=== PATIENT | male | born 1985 | race African-American/Black ===

== ENCOUNTER 2020-12-22 13:50 | Observation (INO) | payer OTHER ==
[2020-12-22 14:05] VITALS: TEMP 99.7
[2020-12-22 15:20] LABS: Amphetamine Screen,Urine Not Detected (NotDetected); Barbiturate Screen,Urine Not Detected (NotDetected); Basophils # (A) 0.1 k/uL (0-0.2); Basophils % (A) 1 %; Benzodiazepines Screen,Urine Not Detected (NotDetected); Cocaine Screen,Urine Not Detected (NotDetected); Eosinophils # (A) 0.2 k/uL (0-0.7); Eosinophils % (A) 2 %; HCT 46.4 % (39.0-53.0); Lymphocytes # (A) 3.1 k/uL (1.0-4.8); Lymphocytes % (A) 31 %; MCH 31.1 pg (25.0-35.0); MCHC 34.6 g/dL (31.0-37.0); MCV 89.9 fL (80.0-100.0); Methadone Screen, Urine Not Detected (NotDetected); Monocytes # (A) 0.6 k/uL (0-1.0); Monocytes % (A) 6 %; Neutrophils % (A) 59 %; Opiate Screen,Urine Not Detected (NotDetected); Oxycodone Screen, Urine Not Detected (NotDetected); Phencyclidine Screen,Urine Not Detected (NotDetected); Platelet Count 199 k/uL (150-450); RBC 5.16 m/uL (4.30-5.90); RDW 13.6 % (11.5-15.5); Tricyclic Antidepressant,Urine Not Detected (NotDetected); Urn Cannabinoid Scrn Not Detected (NotDetected); WBC 10.1 k/uL (3.8-10.6)
[2020-12-22 15:28] LABS: Lactic Acid, Venous 1.7 mmol/L (0.7-2.0)
[2020-12-22 16:23] LABS: ALT 24 U/L (4-49); AST 45 U/L (17-59); African American GFR (CKD) 79 (>60 ml/min/1.73 sqM); Albumin 4.7 g/dL (3.5-5.0); Alcohol <10 mg/dL; Alkaline Phosphatase 84 U/L (38-126); Amylase 67 U/L (30-110); Anion Gap 12 mmol/L; Blood Urea Nitrogen 11 mg/dL (9-20); Calcium 10.5 mg/dL (8.4-10.2); Carbon Dioxide 25 mmol/L (22-30); Chloride 102 mmol/L (98-107); Glucose 109 mg/dL (74-99); Lipase 72 U/L (23-300); Magnesium 1.7 mg/dL (1.6-2.3); Non-African American GFR(CKD) 69 (>60 ml/min/1.73 sqM); Potassium 4.2 mmol/L (3.5-5.1); Sodium 139 mmol/L (137-145); Total Bilirubin 0.9 mg/dL (0.2-1.3)
[2020-12-22 16:27] LABS: Creatine Kinase 1079 U/L (55-170)
[2020-12-22] MEDS ORDERED: LORazepam 2 MG/ML INJ IV STA (17:35)
--- NOTE | 2020-12-22 17:41 | ED ---
General Adult HPI - General Chief complaint: Psychiatric Symptoms Stated complaint: Intoxication/Drug Use Time Seen by Provider: 12/22/20 14:00 Source: patient, EMS, RN notes reviewed Mode of arrival: EMS Limitations: no limitations - History of Present Illness Initial comments: 35-year-old male with unknown medical history other than that of crack cocaine abuse who is brought in by EMS from [facility] because of the very anxious acting strangely. The patient had stated that he had done 85 capsules of Kratom but also admitted to using crack cocaine and also states he took [id number] sleeping medication because he could not sleep. He is demonstrating somewhat of a flight of ideas he also later complained of some pa in - Related Data Home Medications Medication Instructions Recorded Confirmed ARIPiprazole [Abilify] 15 mg PO HS 12/22/20 12/22/20 Divalproex Sodium [Depakote] 500 mg PO BID 12/22/20 12/22/20 Haloperidol Decanoate [Haldol D] 50 mg IM QMONTHLY 12/22/20 12/22/20 PARoxetine [Paxil] 20 mg PO BID 12/22/20 12/22/20 Sertraline [Zoloft] 100 mg PO DAILY 12/22/20 12/22/20 hydrOXYzine pamoate [Vistaril] 25 mg PO TID 12/22/20 12/22/20 traZODone HCL [Desyrel] 100 mg PO HS 12/22/20 12/22/20 Allergies Allergy/AdvReac Type Severity Reaction Status Date / Time No Known Allergies Allergy Verified 12/22/20 15:33 Review of Systems ROS Statement: Those systems with pertinent positive or pertinent negative responses have been documented in the HPI. ROS Other: All systems not noted in ROS Statement are negative. Limitations: ROS unobtainable due to patients medical condition Past Medical History Past Medical History: Unable to Obtain History of Any Multi-Drug Resistant Organisms: Unobtainable Past Surgical History: Unable to Obtain Past Psychological History: Unable to Obtain Smoking Status: Unknown if ever smoked Past Alcohol Use History: Unable to Obtain Past Drug Use History: Cocaine General Exam - General Exam Comments Initial Comments: This is a well-developed well-nourished awake alert oriented times female who does demonstrate some flight of ideas but otherwise does answer questions appropriately Limitations: no limitations General appearance: alert, anxious Head exam: Present: atraumatic, normocephalic, normal inspection Eye exam: Present: normal appearance, PERRL, EOMI. Absent: scleral icterus, conjunctival injection, periorbital swelling ENT exam: Present: mucous membranes dry Neck exam: Present: normal inspection, full ROM, other. Absent: tenderness, meningismus, lymphadenopathy Respiratory exam: Present: normal lung sounds bilaterally. Absent: respiratory distress, wheezes, rales, rhonchi, stridor Cardiovascular Exam: Present: normal rhythm, tachycardia (No stridor JVD or bruits), normal heart sounds. Absent: systolic murmur, diastolic murmur, rubs, gallop, clicks GI/Abdominal exam: Present: soft, normal bowel sounds. Absent: distended, tenderness, guarding, rebound, rigid Extremities exam: Present: full ROM, normal capillary refill, other (Foot demonstrates evidence of blister formation on the right metatarsal phalangeal joint plantar surface). Absent: tenderness, pedal edema, joint swelling, calf tenderness Back exam: Present: normal inspection Neurological exam: Present: alert, oriented X3, CN II-XII intact Psychiatric exam: Present: anxious, other (X-ray some flight of ideas and irrational thought patterns) Skin exam: Present: warm, dry, intact, normal color. Absent: rash Course Vital Signs 12/22/20 13:58 Temperature 99.7 F H Pulse Rate 115 H Respiratory 22 Rate Blood Pressure 114/92 O2 Sat by Pulse 100 Oximetry Medical Decision Making - Medical Decision Making The patient's drug screen and alcohol levels are negative. Patient does demons trate evidence of rhabdomyolysis as well as toxicity from the medications he states he took he will be admitted the case discussed the [facility] group - Lab Data Result diagrams: 12/22/20 14:52 12/22/20 15:58 Lab Results 12/22/20 12/22/20 12/22/20 Range/Units 14:52 14:52 14:52 WBC 10.1 (3.8-10.6) k/uL RBC 5.16 (4.30-5.90) m/uL Hgb 16.0 (13.0-17.5) gm/dL Hct 46.4 (39.0-53.0) % MCV 89.9 (80.0-100.0) fL MCH 31.1 (25.0-35.0) pg MCHC 34.6 (31.0-37.0) g/dL RDW 13.6 (11.5-15.5) % Plt Count 199 (150-450) k/uL MPV 8.0 Neutrophils % 59 % Lymphocytes % 31 % Monocytes % 6 % Eosinophils % 2 % Basophils % 1 % Neutrophils # 6.0 (1.3-7.7) k/uL Lymphocytes # 3.1 (1.0-4.8) k/uL Monocytes # 0.6 (0-1.0) k/uL Eosinophils # 0.2 (0-0.7) k/uL Basophils # 0.1 (0-0.2) k/uL Sodium (137-145) mmol/L Potassium (3.5-5.1) mmol/L Chloride (98-107) mmol/L Carbon Dioxide (22-30) mmol/L Anion Gap mmol/L BUN (9-20) mg/dL Creatinine (0.66-1.25) mg/dL Est GFR (CKD-EPI)AfAm (>60 ml/min/1.73 sqM) Est GFR (CKD-EPI)NonAf (>60 ml/min/1.73 sqM) Glucose (74-99) mg/dL Plasma Lactic Acid Robin 1.7 (0.7-2.0) mmol/L Calcium (8.4-10.2) mg/dL Magnesium (1.6-2.3) mg/dL Total Bilirubin (0.2-1.3) mg/dL AST (17-59) U/L ALT (4-49) U/L Alkaline Phosphatase (38-126) U/L Ammonia 18 (<30) umol/L Creatine Kinase (55-170) U/L Total Protein (6.3-8.2) g/dL Albumin (3.5-5.0) g/dL Amylase (30-110) U/L Lipase (23-300) U/L Urine Opiates Screen Not Detected (NotDetected) Ur Oxycodone Screen Not Detected (NotDetected) Urine Methadone Screen Not Detected (NotDetected) Ur Propoxyphene Screen Not Detected (NotDetected) Ur Barbiturates Screen Not Detected (NotDetected) U Tricyclic Antidepress Not Detected (NotDetected) Ur Phencyclidine Scrn Not Detected (NotDetected) Ur Amphetamines Screen Not Detected (NotDetected) U Methamphetamines Scrn Not Detected (NotDetected) U Benzodiazepines Scrn Not Detected (NotDetected) Urine Cocaine Screen Not Detected (NotDetected) U Marijuana (THC) Screen Not Detected (NotDetected) Serum Alcohol mg/dL 12/22/20 Range/Units 15:58 WBC (3.8-10.6) k/uL RBC (4.30-5.90) m/uL Hgb (13.0-17.5) gm/dL Hct (39.0-53.0) % MCV (80.0-100.0) fL MCH (25.0-35.0) pg MCHC (31.0-37.0) g/dL RDW (11.5-15.5) % Plt Count (150-450) k/uL MPV Neutrophils % % Lymphocytes % % Monocytes % % Eosinophils % % Basophils % % Neutrophils # (1.3-7.7) k/uL Lymphocytes # (1.0-4.8) k/uL Monocytes # (0-1.0) k/uL Eosinophils # (0-0.7) k/uL Basophils # (0-0.2) k/uL Sodium 139 (137-145) mmol/L Potassium 4.2 (3.5-5.1) mmol/L Chloride 102 (98-107) mmol/L Carbon Dioxide 25 (22-30) mmol/L Anion Gap 12 mmol/L BUN 11 (9-20) mg/dL Creatinine 1.33 H (0.66-1.25) mg/dL Est GFR (CKD-EPI)AfAm 79 (>60 ml/min/1.73 sqM) Est GFR (CKD-EPI)NonAf 69 (>60 ml/min/1.73 sqM) Glucose 109 H (74-99) mg/dL Plasma Lactic Acid Robin (0.7-2.0) mmol/L Calcium 10.5 H (8.4-10.2) mg/dL Magnesium 1.7 (1.6-2.3) mg/dL Total Bilirubin 0.9 (0.2-1.3) mg/dL AST 45 (17-59) U/L ALT 24 (4-49) U/L Alkaline Phosphatase 84 (38-126) U/L Ammonia (<30) umol/L Creatine Kinase 1079 H* (55-170) U/L Total Protein 8.0 (6.3-8.2) g/dL Albumin 4.7 (3.5-5.0) g/dL Amylase 67 (30-110) U/L Lipase 72 (23-300) U/L Urine Opiates Screen (NotDetected) Ur Oxycodone Screen (NotDetected) Urine Methadone Screen (NotDetected) Ur Propoxyphene Screen (NotDetected) Ur Barbiturates Screen (NotDetected) U Tricyclic Antidepress (NotDetected) Ur Phencyclidine Scrn (NotDetected) Ur Amphetamines Screen (NotDetected) U Methamphetamines Scrn (NotDetected) U Benzodiazepines Scrn (NotDetected) Urine Cocaine Screen (NotDetected) U Marijuana (THC) Screen (NotDetected) Serum Alcohol <10 mg/dL Disposition Clinical Impression: Rhabdomyolysis, Drug overdose, Tachycardia Disposition: ADMITTED IP TO THIS [facility] Condition: Fair Referrals: Nonstaff,Physician [Primary Care Provider] - 1-2 days
[2020-12-22] MEDS ORDERED: SODIUM CHLORIDE 0.9% 1,000 ML IV SCH ×2 (17:45→18:30)
[2020-12-22] MEDS ORDERED: NALOXONE 0.4 MG/ML 1 ML VIAL IV PRN (18:20)
[2020-12-22 18:49] VITALS: BP 116/86; PULSE 90; RESP 20
[2020-12-22] MEDS ORDERED: HALOPERIDOL LACTATE 5 MG/ML 1 ML VIAL IM STA (19:33)
[2020-12-22] MEDS ORDERED: diphenhydrAMINE 50 MG/ML 1 ML VIAL IM STA (19:34)
[2020-12-22] MEDS ORDERED: LORazepam 2 MG/ML INJ IM STA (19:38)
--- NOTE | 2020-12-22 19:44 | ED ---
Medical Decision Making - Medical Decision Making Addendum the patient's demonstrate a flight of ideas is not demonstrating decision making capacity. - Lab Data Result diagrams: 12/22/20 14:52 12/22/20 15:58 Lab Results 12/22/20 12/22/20 12/22/20 Range/Units 14:52 14:52 14:52 WBC 10.1 (3.8-10.6) k/uL RBC 5.16 (4.30-5.90) m/uL Hgb 16.0 (13.0-17.5) gm/dL Hct 46.4 (39.0-53.0) % MCV 89.9 (80.0-100.0) fL MCH 31.1 (25.0-35.0) pg MCHC 34.6 (31.0-37.0) g/dL RDW 13.6 (11.5-15.5) % Plt Count 199 (150-450) k/uL MPV 8.0 Neutrophils % 59 % Lymphocytes % 31 % Monocytes % 6 % Eosinophils % 2 % Basophils % 1 % Neutrophils # 6.0 (1.3-7.7) k/uL Lymphocytes # 3.1 (1.0-4.8) k/uL Monocytes # 0.6 (0-1.0) k/uL Eosinophils # 0.2 (0-0.7) k/uL Basophils # 0.1 (0-0.2) k/uL Sodium (137-145) mmol/L Potassium (3.5-5.1) mmol/L Chloride (98-107) mmol/L Carbon Dioxide (22-30) mmol/L Anion Gap mmol/L BUN (9-20) mg/dL Creatinine (0.66-1.25) mg/dL Est GFR (CKD-EPI)AfAm (>60 ml/min/1.73 sqM) Est GFR (CKD-EPI)NonAf (>60 ml/min/1.73 sqM) Glucose (74-99) mg/dL Plasma Lactic Acid Robin 1.7 (0.7-2.0) mmol/L Calcium (8.4-10.2) mg/dL Magnesium (1.6-2.3) mg/dL Total Bilirubin (0.2-1.3) mg/dL AST (17-59) U/L ALT (4-49) U/L Alkaline Phosphatase (38-126) U/L Ammonia 18 (<30) umol/L Creatine Kinase (55-170) U/L Total Protein (6.3-8.2) g/dL Albumin (3.5-5.0) g/dL Amylase (30-110) U/L Lipase (23-300) U/L Urine Opiates Screen Not Detected (NotDetected) Ur Oxycodone Screen Not Detected (NotDetected) Urine Methadone Screen Not Detected (NotDetected) Ur Propoxyphene Screen Not Detected (NotDetected) Ur Barbiturates Screen Not Detected (NotDetected) U Tricyclic Antidepress Not Detected (NotDetected) Ur Phencyclidine Scrn Not Detected (NotDetected) Ur Amphetamines Screen Not Detected (NotDetected) U Methamphetamines Scrn Not Detected (NotDetected) U Benzodiazepines Scrn Not Detected (NotDetected) Urine Cocaine Screen Not Detected (NotDetected) U Marijuana (THC) Screen Not Detected (NotDetected) Serum Alcohol mg/dL Coronavirus (PCR) (Not Detectd) 12/22/20 12/22/20 Range/Units 15:58 17:51 WBC (3.8-10.6) k/uL RBC (4.30-5.90) m/uL Hgb (13.0-17.5) gm/dL Hct (39.0-53.0) % MCV (80.0-100.0) fL MCH (25.0-35.0) pg MCHC (31.0-37.0) g/dL RDW (11.5-15.5) % Plt Count (150-450) k/uL MPV Neutrophils % % Lymphocytes % % Monocytes % % Eosinophils % % Basophils % % Neutrophils # (1.3-7.7) k/uL Lymphocytes # (1.0-4.8) k/uL Monocytes # (0-1.0) k/uL Eosinophils # (0-0.7) k/uL Basophils # (0-0.2) k/uL Sodium 139 (137-145) mmol/L Potassium 4.2 (3.5-5.1) mmol/L Chloride 102 (98-107) mmol/L Carbon Dioxide 25 (22-30) mmol/L Anion Gap 12 mmol/L BUN 11 (9-20) mg/dL Creatinine 1.33 H (0.66-1.25) mg/dL Est GFR (CKD-EPI)AfAm 79 (>60 ml/min/1.73 sqM) Est GFR (CKD-EPI)NonAf 69 (>60 ml/min/1.73 sqM) Glucose 109 H (74-99) mg/dL Plasma Lactic Acid Robin (0.7-2.0) mmol/L Calcium 10.5 H (8.4-10.2) mg/dL Magnesium 1.7 (1.6-2.3) mg/dL Total Bilirubin 0.9 (0.2-1.3) mg/dL AST 45 (17-59) U/L ALT 24 (4-49) U/L Alkaline Phosphatase 84 (38-126) U/L Ammonia (<30) umol/L Creatine Kinase 1079 H* (55-170) U/L Total Protein 8.0 (6.3-8.2) g/dL Albumin 4.7 (3.5-5.0) g/dL Amylase 67 (30-110) U/L Lipase 72 (23-300) U/L Urine Opiates Screen (NotDetected) Ur Oxycodone Screen (NotDetected) Urine Methadone Screen (NotDetected) Ur Propoxyphene Screen (NotDetected) Ur Barbiturates Screen (NotDetected) U Tricyclic Antidepress (NotDetected) Ur Phencyclidine Scrn (NotDetected) Ur Amphetamines Screen (NotDetected) U Methamphetamines Scrn (NotDetected) U Benzodiazepines Scrn (NotDetected) Urine Cocaine Screen (NotDetected) U Marijuana (THC) Screen (NotDetected) Serum Alcohol <10 mg/dL Coronavirus (PCR) Not Detected (Not Detectd) Disposition Clinical Impression: Rhabdomyolysis, Drug overdose, Tachycardia, Acute psychosis Disposition: ADMITTED IP TO THIS HOSP Condition: Fair
[2020-12-22] MEDS: SODIUM CHLORIDE 0.9% 1,000 ML IV SCH (20:02)
== END 2020-12-22 20:04 | disposition left against medical advice (07) ==
LOC: EC 13:50 → 6NMEDSUR 18:23
PROVIDERS: ADMIT Student in an Organized Health Care Education/Training Program; ATTEND Student in an Organized Health Care Education/Training Program
DX: T50.992A Poisoning by other drugs, medicaments and biological substances, intentional self-harm, initial encounter (principal); Z53.29 Procedure and treatment not carried out because of patient's decision for other reasons; M62.82 Rhabdomyolysis; R00.0 Tachycardia, unspecified; F23 Brief psychotic disorder; F14.129 Cocaine abuse with intoxication, unspecified; Z20.822 Contact with and (suspected) exposure to COVID-19; Z79.899 Other long term (current) drug therapy
CPT/HCPCS: 82075; 99285; 36415; 80164; 80053; 82140; 82150; 82550; 83605; 83690; 83735; 85025; 80306; 87635; G0378; G0480; J2060; 80320

== ENCOUNTER 2020-12-22 20:07 | Observation (INO) | payer OTHER ==
[2020-12-22] MEDS ORDERED: NALOXONE 0.4 MG/ML 1 ML VIAL IV PRN (21:40)
--- NOTE | 2020-12-22 21:46 | ED ---
Recheck HPI - General Chief Complaint: Recheck/Abnormal Lab/Rx Stated Complaint: Intoxication Time Seen by Provider: 12/22/20 21:01 Source: patient Mode of arrival: ambulatory Limitations: no limitations - History of Present Illness Initial Comments: Srikanth a 35-year-old male who presents to the ER today at less than one hour after walking out AMA. Patient was seen earlier in the day after ingesting multiple drugs, uncertain what exactly he ingested he had mentioned crack cocaine, Benadryl and Kratom... however patient's urine drug screen was negative for all drugs therefore is unlikely that he had crack cocaine. During his previous workup earlier in the day patient was noted be in rhabdomyolysis and also had some labile emotions, he is given medications for sedation and anxiolysis and admitted to the hospital for IV fluid resuscitation. Patient apparently decided to walk out of the emergency department and upon walking out of decided to come back in. - Related Data Home Medications Medication Instructions Recorded Confirmed ARIPiprazole [Abilify] 15 mg PO HS 12/22/20 12/22/20 Divalproex Sodium [Depakote] 500 mg PO BID 12/22/20 12/22/20 Haloperidol Decanoate [Haldol D] 50 mg IM QMONTHLY 12/22/20 12/22/20 PARoxetine [Paxil] 20 mg PO BID 12/22/20 12/22/20 Sertraline [Zoloft] 100 mg PO DAILY 12/22/20 12/22/20 hydrOXYzine pamoate [Vistaril] 25 mg PO TID 12/22/20 12/22/20 traZODone HCL [Desyrel] 100 mg PO HS 12/22/20 12/22/20 Allergies Allergy/AdvReac Type Severity Reaction Status Date / Time No Known Allergies Allergy Verified 12/22/20 20:43 Review of Systems ROS Statement: Those systems with pertinent positive or pertinent negative responses have been documented in the HPI. ROS Other: All systems not noted in ROS Statement are negative. Past Medical History Past Medical History: Unable to Obtain History of Any Multi-Drug Resistant Organisms: Unobtainable Past Surgical History: Unable to Obtain Past Psychological History: Unable to Obtain Smoking Status: Unknown if ever smoked Past Alcohol Use History: Unable to Obtain Past Drug Use History: Cocaine General Exam - General Exam Comments Initial Comments: Physical Exam GENERAL: Patient is well-developed and well-nourished. Patient is nontoxic and well-hydrated and is in no distress. HENT: Normocephalic, Atraumatic. EYES: PERRL, EOMI PULMONARY: Unlabored respirations. CARDIOVASCULAR: RRR Warm and well perfused extremities ABDOMEN: Non-distended SKIN: No rashes or bruising : Deferred NEUROLOGIC: Alert and oriented Normal speech Normal gait MUSCULOSKELETAL: Moving all extremities with no apparent injury PSYCHIATRIC: Agitated Limitations: no limitations Course Vital Signs 12/22/20 12/22/20 20:43 21:02 Temperature 99.3 F Pulse Rate 107 H Respiratory 18 18 Rate Blood Pressure 133/81 O2 Sat by Pulse 100 Oximetry Medical Decision Making - Medical Decision Making She was reevaluated and will be readmitted to the hospital due to rhabdomyolysis Dr Lay accepts admission Disposition Clinical Impression: Rhabdomyolysis, Drug overdose, Tachycardia, Acute psychosis Disposition: ADMITTED IP TO THIS HOSP Condition: Stable Is patient prescribed a controlled substance at d/c from ED?: No Referrals: Nonstaff,Physician [Primary Care Provider] - 1-2 days
--- NOTE | 2020-12-23 00:13 | P.HPIM ---
History of Present Illness H&P Date: 12/22/20 Patient is a 35-year-old male with a PMH of psychiatric illnesses presented to the emergency room earlier today after ingesting some drugs. Patient states that he tried to go to [facility] earlier today for detox to get clean from all of his substance use but was sent to the emergency room as he was tachycardic. The patient had initially decided to leave AGAINST MEDICAL ADVICE but subsequently presented again and decided to wait to be picked up by [facility] employees in the morning. The patient had initially mentioned to the emergency room physician that he may have taken Kratom or crack cocaine. At time of the interview, the patient vehemently denied using the above substances and states that he takes 8-10 Benadryl's daily which she took prior to his arrival at the emergency room. He states that this is the reason he wishes to go to rehab and that he has not used crack cocaine for several months and has never used Kratom. The patient also reported having suffered a right plantar laceration earlier today after slipping on some stairs. He denied any additional complaints. He denied chest discomfort, shortness of breath, fever, chills, cough. Also denied nausea, vomiting, abdominal pain, diarrhea. Laboratory evaluation in the emergency room was remarkable for a creatinine kinase of 1079, creatinine 1.33, and a unremarkable UA. Review of systems: Pertinent positives and negatives as discussed in HPI, a complete review of systems was performed and all other systems are negative. Physical examination: General: non toxic, no distress, appears at stated age, obese Derm: no unusual rashes, no unusual ecchymoses, warm, dry, right plantar surface shallow laceration noted with minimal surrounding erythema Head: atraumatic, normocephalic, symmetric Eyes: EOMI, no lid lag, anicteric sclera, pupils equal round reactive to light ENT: Nose and ears atraumatic, no thrush, no pharyngeal erythema Neck: No thyromegaly, no cervical lymphadenopathy, trachea midline, supple Mouth: no lip lesion, mucus membranes moist Cardiovascular: S1S2 reg, no murmur, positive posterior tibial pulse bilateral, no edema, capillary refill less than 2 seconds Lungs: CTA bilateral, no rhonchi, no rales , no accessory muscle use Abdominal: soft, nontender to palpation, no guarding, no appreciable organomegaly, normal bowel sounds Ext: no gross muscle atrophy, muscle strength 5 out of 5 in all 4 extremities grossly, no contractures, Neuro: CN II-XI grossly intact, light touch intact all 4 extremities, finger to nose within normal limits, Psych: Alert, oriented, appropriate affect Assessment/plan Rhabdomyolysis, unclear etiology, may be due to Kratom use -Multiple case reports regarding use of Kratom linked with Rhabdomyolysis -Continue with IV fluids -Monitor CK -Advised patient on importance of cessation CATHLEEN versus CKD -Likely due to rhabdomyolysis -Continue with IV fluids and monitor for now DVT prophylaxis -Heparin subq The patient is admitted with an anticipated less than 2 midnight stay for evaluation of Rhabdomyolysis CODE STATUS: Full Code Discussed with: Patient Anticipated discharge date: in am Anticipated discharge place: [facility] Past Medical History Past Medical History: No Reported History History of Any Multi-Drug Resistant Organisms: None Reported Past Surgical History: No Surgical Hx Reported Past Anesthesia/Blood Transfusion Reactions: No Reported Reaction Past Psychological History: No Psychological Hx Reported Smoking Status: Current every day smoker Past Alcohol Use History: Rare Past Drug Use History: Cocaine Medications and Allergies Home Medications Medication Instructions Recorded Confirmed Type ARIPiprazole [Abilify] 15 mg PO HS 12/22/20 12/22/20 History Divalproex Sodium [Depakote] 500 mg PO BID 12/22/20 12/22/20 History Haloperidol Decanoate [Haldol D] 50 mg IM QMONTHLY 12/22/20 12/22/20 History PARoxetine [Paxil] 20 mg PO BID 12/22/20 12/22/20 History Sertraline [Zoloft] 100 mg PO DAILY 12/22/20 12/22/20 History hydrOXYzine pamoate [Vistaril] 25 mg PO TID 12/22/20 12/22/20 History traZODone HCL [Desyrel] 100 mg PO HS 12/22/20 12/22/20 History Allergies Allergy/AdvReac Type Severity Reaction Status Date / Time No Known Allergies Allergy Verified 12/22/20 20:43 Physical Exam Vitals: Vital Signs Temp Pulse Pulse Resp BP BP Pulse Ox 12/22/20 22:53 98.2 F 97 18 123/77 100 12/22/20 22:51 18 12/22/20 22:35 97.8 F 12/22/20 22:15 101 H 98 H 124/84 98 12/22/20 21:02 18 12/22/20 20:43 99.3 F 107 H 18 133/81 100 Intake and Output 12/22/20 12/22/20 12/23/20 14:59 22:59 06:59 Other: Voiding Method Toilet Weight 90.718 kg 90.718 kg Thrombosis Risk Factor Assmnt - Choose All That Apply Each Factor Represents 1 point: Obesity (BMI >25) Thrombosis Risk Factor Assessment Total Risk Factor Score: 1 Thrombosis Risk Factor Assessment Level: Low Risk
[2020-12-23] MEDS ORDERED: ALPRAZolam 0.25 MG TAB PO STA ×2 (00:20→04:50)
[2020-12-23] MEDS: SODIUM CHLORIDE 0.9% 1,000 ML IV SCH ×3 (00:35→16:13)
[2020-12-23] MEDS ORDERED: DIPH,PERTUS(ACELL)TETVAC-LF 0.5 ML VIAL IM ONE (03:13)
[2020-12-23] MEDS: ENOXAPARIN 40 MG/0.4 ML SYRINGE SQ SCH (08:40)
[2020-12-23 09:33] LABS: African American GFR (CKD) 86.1 (60.0-200.0); Anion Gap 12.5 mmol/L (4.00-12.00); BUN/Creat Ratio 11.53 Ratio (12.00-20.00); Blood Urea Nitrogen 14.3 mg/dL (9.0-27.0); Carbon Dioxide 24.6 mmol/L (21.6-31.8); Non-African American GFR(CKD) 74.3 (60.0-200.0); Potassium 4.1 mmol/L (3.5-5.5)
--- NOTE | 2020-12-23 13:50 | P.PN ---
Subjective Patient was seen and evaluated by me today. He is feeling fairly well. No acute events overnight. Objective - Vital Signs Vital signs: Vital Signs Temp 97.8 F 12/23/20 07:00 Pulse 90 12/23/20 08:00 Resp 16 12/23/20 08:00 BP 95/60 12/23/20 07:00 Pulse Ox 100 12/23/20 07:00 Intake & Output 12/22/20 12/23/20 12/23/20 18:59 06:59 18:59 Weight 90.718 kg Other: Voiding Method Toilet Toilet # Voids 3 - Exam General: The patient is awake and alert, in no distress Eye: there is normal conjunctiva bilaterally. Neck: The neck is supple, there is no JVD. Cardiovascular: Normal S1-S2, no S3-S4, no murmurs. Respiratory: Lungs clear to auscultation bilaterally Gastrointestinal: Abdomen is soft, nontender Musculoskeletal: There is no pedal edema. Neurological:. Speech is normal. Skin: Skin is warm and dry - Labs CBC & Chem 7: 12/23/20 05:52 Labs: Abnormal Lab Results - Last 24 Hours (Table) 12/23/20 Range/Units 05:52 Anion Gap 12.50 H (4.00-12.00) mmol/L BUN/Creatinine Ratio 11.53 L (12.00-20.00) Ratio Glucose 65 L (70-110) mg/dL Creatine Kinase 789 H (35-257) U/L Assessment and Plan Assessment: Patient is a 35-year-old male with a PMH of psychiatric illnesses presented to the emergency room earlier today after ingesting some drugs. Patient states that he tried to go to [facility] earlier today for detox to get clean from all of his substance use but was sent to the emergency room as he was tachy cardic. The patient had initially decided to leave AGAINST MEDICAL ADVICE but subsequently presented again and decided to wait to be picked up by [facility] employees in the morning. The patient had initially mentioned to the emergency room physician that he may have taken Kratom or crack cocaine. At time of the interview, the patient vehemently denied using the above substances and states that he takes 8-10 Benadryl's daily which she took prior to his arrival at the emergency room. He states that this is the reason he wishes to go to rehab and that he has not used crack cocaine for several months and has never used Kratom. The patient also reported having suffered a right plantar laceration earlier today after slipping on some stairs. He denied any additional complaints. He denied chest discomfort, shortness of breath, fever, chills, cough. Also denied nausea, vomiting, abdominal pain, diarrhea. Laboratory evaluation in the emergency room was remarkable for a creatinine kinase of 1079, creatinine 1.33, and a unremarkable UA. Assessment/plan Rhabdomyolysis, unclear etiology, may be due to Kratom use -Multiple case reports regarding use of Kratom linked with Rhabdomyolysis -Continue with IV fluids -Monitor CK -Advised patient on importance of cessation CATHLEEN versus CKD -Likely due to rhabdomyolysis -Continue with IV fluids and monitor for now DVT prophylaxis -Heparin subq The patient is admitted with an anticipated less than 2 midnight stay for evaluation of Rhabdomyolysis CODE STATUS: Full Code Discussed with: Patient Anticipated discharge date: in am Anticipated discharge place: [facility] Multiple attempts were made to contact [facility] exacerbation but no answer. Most likely patient will be here until Friday
[2020-12-23] MEDS ORDERED: ACETAMINOPHEN TAB 325 MG TAB PO PRN (15:56)
[2020-12-24] MEDS: SODIUM CHLORIDE 0.9% 1,000 ML IV SCH ×2 (01:12→09:28)
[2020-12-24] MEDS: ENOXAPARIN 40 MG/0.4 ML SYRINGE SQ SCH (10:37)
--- NOTE | 2020-12-24 11:08 | P.PN ---
Subjective Patient was sleeping this morning. No acute events overnight. Awaiting placement to [facility] tomorrow Objective - Vital Signs Vital signs: Vital Signs Temp 97.7 F 12/24/20 07:00 Pulse 80 12/24/20 07:00 Resp 18 12/24/20 07:00 BP 118/74 12/24/20 07:00 Pulse Ox 99 12/24/20 07:00 Intake & Output 12/23/20 12/24/20 12/24/20 18:59 06:59 18:59 Intake Total 1400 118 Output Total 300 1000 Balance -300 400 118 Intake: Oral 1400 118 Output: Urine 300 1000 Other: Voiding Method Toilet Urinal - Exam General: The patient is awake and alert, in no distress Eye: there is normal conjunctiva bilaterally. Neck: The neck is supple, there is no JVD. Cardiovascular: Normal S1-S2, no S3-S4, no murmurs. Respiratory: Lungs clear to auscultation bilaterally Gastrointestinal: Abdomen is soft, nontender Musculoskeletal: There is no pedal edema. Neurological:. Speech is normal. Skin: Skin is warm and dry - Labs CBC & Chem 7: 12/23/20 05:52 Labs: Abnormal Lab Results - Last 24 Hours (Table) 12/24/20 Range/Units 09:42 Creatine Kinase 277 H (55-170) U/L Assessment and Plan Assessment: Patient is a 35-year-old male with a PMH of psychiatric illnesses presented to the emergency room earlier today after ingesting some drugs. Patient states that he tried to go to [facility] earlier today for detox to get clean from all of his substance use but was sent to the emergency room as he was tachycardic. The patient had initially decided to leave AGAINST MEDICAL ADVICE but subsequently presented again and decided to wait to be picked up by [facility] employees in the morning. The patient had initially mentioned to the emergency room physician that he may have taken Kratom or crack cocaine. At time of the interview, the patient vehemently denied using the above substances and states that he takes 8-10 Benadryl's daily which she took prior to his arrival at the emergency room. He states that this is the reason he wishes to go to rehab and that he has not used crack cocaine for several months and has ne azeem used Kratom. The patient also reported having suffered a right plantar laceration earlier today after slipping on some stairs. He denied any additional complaints. He denied chest discomfort, shortness of breath, fever, chills, cough. Also denied nausea, vomiting, abdominal pain, diarrhea. Laboratory evaluation in the emergency room was remarkable for a creatinine kinase of 1079, creatinine 1.33, and a unremarkable UA. Assessment/plan Rhabdomyolysis, unclear etiology, may be due to Kratom use -Multiple case reports regarding use of Kratom linked with Rhabdomyolysis -Continue with IV fluids -Monitor CK -Advised patient on importance of cessation CATHLEEN versus CKD -Likely due to rhabdomyolysis -Continue with IV fluids and monitor for now DVT prophylaxis -Heparin subq The patient is admitted with an anticipated less than 2 midnight stay for evaluation of Rhabdomyolysis CODE STATUS: Full Code Discussed with: Patient Anticipated discharge date: in am Anticipated discharge place: [facility] Multiple attempts were made to contact [facility] exacerbation but no answer. Most likely patient will be here until Friday
[2020-12-24] MEDS: DIVALPROEX 500 MG TABLET.DR PO SCH (20:07)
[2020-12-24] MEDS ORDERED: ALPRAZolam 0.5 MG TAB PO PRN (20:34)
[2020-12-24] MEDS ORDERED: traZODone HCL 100 MG TAB PO SCH (21:00)
[2020-12-24] MEDS ORDERED: ARIPiprazole 15 MG TAB PO SCH (21:00)
[2020-12-25] MEDS: ENOXAPARIN 40 MG/0.4 ML SYRINGE SQ SCH (08:08)
[2020-12-25] MEDS: DIVALPROEX 500 MG TABLET.DR PO SCH (08:09)
[2020-12-25 08:51] VITALS: BP 100/64; PULSE 81; RESP 16; TEMP 98.1
--- NOTE | 2020-12-25 09:49 | P.DS ---
Providers Date of admission: 12/22/20 21:40 Expected date of discharge: 12/25/20 Attending physician: Ruben Lay MD Primary care physician: Physician Nonsta Hospital Course: Patient is a 35-year-old male with a PMH of psychiatric illnesses presented to the emergency room earlier today after ingesting some drugs. Patient states that he tried to go to [facility] earlier today for detox to get clean from all of his substance use but was sent to the emergency room as he was tachycardic. The patient had initially decided to leave AGAINST MEDICAL ADVICE but subsequently presented again and decided to wait to be picked up by [facility] employees in the morning. The patient had initially mentioned to the emergency room physician that he may have taken Kratom or crack cocaine. At time of the interview, the patient vehemently denied using the above substances and states that he takes 8-10 Benadryl's daily which she took prior to his arrival at the emergency room. He states that this is the reason he wishes to go to rehab and that he has not used crack cocaine for several months and has never used Kratom. The patient also reported having suffered a right plantar laceration earlier today after slipping on some stairs. He denied any additional complaints. He denied chest discomfort, shortness of breath, fever, chills, cough. Also denied nausea, vomiting, abdominal pain, diarrhea. Laboratory evaluation in the emergency room was remarkable for a creatinine kinase of 1079, creatinine 1.33, and a unremarkable UA. Assessment/plan Rhabdomyolysis, unclear etiology, may be due to Kratom use -Improved significantly with IV fluid hydration CATHLEEN -secondary to above, improved with IV fluid Patient will be discharged back to [facility]. Follow-up with his psychiatrist as directed. General: The patient is awake and alert, in no distress Eye: there is normal conjunctiva bilaterally. Neck: The neck is supple, there is no JVD. Cardiovascular: Normal S1-S2, no S3-S4, no murmurs. Respiratory: Lungs clear to auscultation bilaterally Gastrointestinal: Abdomen is soft, nontender Musculoskeletal: There is no pedal edema. Neurological:. Speech is normal. Skin: Skin is warm and dry Patient Condition at Discharge: Stable Plan - Discharge Summary New Discharge Prescriptions: Continue traZODone HCL [Desyrel] 100 mg PO HS hydrOXYzine pamoate [Vistaril] 25 mg PO TID Sertraline [Zoloft] 100 mg PO DAILY Divalproex Sodium [Depakote] 500 mg PO BID ARIPiprazole [Abilify] 15 mg PO HS Haloperidol Decanoate [Haldol D] 50 mg IM QMONTHLY Discontinued PARoxetine [Paxil] 20 mg PO BID Discharge Medication List ARIPiprazole [Abilify] 15 mg PO HS 12/22/20 [History] Divalproex Sodium [Depakote] 500 mg PO BID 12/22/20 [History] Haloperidol Decanoate [Haldol D] 50 mg IM QMONTHLY 12/22/20 [History] Sertraline [Zoloft] 100 mg PO DAILY 12/22/20 [History] hydrOXYzine pamoate [Vistaril] 25 mg PO TID 12/22/20 [History] traZODone HCL [Desyrel] 100 mg PO HS 12/22/20 [History] Follow up Appointment(s)/Referral(s): Nonstaff,Physician [Primary Care Provider] - 1-2 days Discharge Disposition: OTHER INSTITUTION NOT DEFINED
== END 2020-12-25 14:42 | disposition other institution (70) ==
LOC: EC 20:07 → 6NMEDSUR 21:40
PROVIDERS: ADMIT Internal Medicine; ATTEND Internal Medicine
DX: M62.82 Rhabdomyolysis (principal); T50.901A Poisoning by unspecified drugs, medicaments and biological substances, accidental (unintentional), initial encounter; N17.9 Acute kidney failure, unspecified; F23 Brief psychotic disorder; Z79.899 Other long term (current) drug therapy; Z23 Encounter for immunization; Z71.51 Drug abuse counseling and surveillance of drug abuser; F17.200 Nicotine dependence, unspecified, uncomplicated; E66.9 Obesity, unspecified; Z68.30 Body mass index [BMI] 30.0-30.9, adult
CPT/HCPCS: 90471; 96360; 96361 ×2; 96372 ×3; 99284; 80048; 82550 ×2; 90715; G0378 ×4; J1650 ×3